=== PATIENT | female | born 1965 | race Caucasian/White ===

== ENCOUNTER → 2019-07-04 10:03 | Outpatient (CLI) | payer BC, SELFPAY ==
--- NOTE | ~2019-07-04 | MM_ITS ---
EXAMINATION: MM screening [facility] BI w alisa HISTORY: Screening mammogram TECHNIQUE: Craniocaudal and mediolateral oblique 3-D tomosynthesis images were obtained and synthetic 2-D images were generated. CAD analysis was submitted and interpreted. COMPARISON: Comparison to multiple prior studies sequentially, with oldest reviewed study dated 06/28. BREAST PARENCHYMAL COMPOSITION: There are scattered areas of fibroglandular density. FINDINGS: Stable left breast mass. There is a new cluster of punctate calcifications in the upper out er quadrant of the left breast. The right breast is stable without evidence for malignancy. IMPRESSION: 1. New cluster of left breast calcifications. 2. Magnification views are recommended. BI-RADS Category 0: Incomplete: Needs additional imaging evaluation. Reviewed, dictated and finalized at location A.
== END ==
PROVIDERS: Visit Provider Obstetrics & Gynecology
DX: Z12.31 Encounter for screening mammogram for malignant neoplasm of breast (principal); R92.8 Other abnormal and inconclusive findings on diagnostic imaging of breast
CPT/HCPCS: 77063; 77067

== ENCOUNTER 2020-02-25 02:19 | Outpatient (CLI) | payer BC, SELFPAY ==
[2020-02-25 19:47] LABS: SARS-CoV-2 RNA PCR Negative
== END 2020-02-25 02:20 | disposition home or self-care (01) ==
LOC: ANHCOVIDDT 02:20
PROVIDERS: PCP Internal Medicine; Visit Provider Surgery
DX: Z01.812 Encounter for preprocedural laboratory examination (principal); Z20.828 Contact with and (suspected) exposure to other viral communicable diseases
CPT/HCPCS: 87635; C9803; U0003

== ENCOUNTER 2020-02-26 07:50 | Outpatient (CLI) | payer BC, SELFPAY ==
--- NOTE | 2020-02-26 07:55 | ECG_ITS ---
Measurements Intervals [place] Rate: 86 P: 69 TN: 164 QRS: 40 QRSD: 85 T: 43 QT: 345 QTc: 413 Interpretive Statements SINUS RHYTHM MINIMAL Q WAVES- INFERIOR LEADS ANTEROSEPTAL INFARCT, AGE INDETERMINATE BASELINE ARTIFACT- I, III, AVR, AVL, AVF ABNORMAL ECG Electronically Signed On 02-26-2020 8:48:19 MULTIPLE CUT OFF SAW OPERATOR by Butch Freeman D.O.
[2020-02-26 10:00] LABS: Anion Gap 7 mmol/L (8-16); Blood Urea Nitrogen 12 mg/dL (7-17); Calcium 9.3 mg/dL (8.4-10.2); Carbon Dioxide 30 mmol/L (22-30); Chloride 103 mmol/L (98-107); Estimated Glomerular Filt Rate > 60; Glucose 87 mg/dL (65-105); Potassium 3.9 mmol/L (3.4-5.0); Sodium 140 mmol/L (137-145)
== END 2020-02-26 07:51 | disposition home or self-care (01) ==
LOC: ANHSURGERY 07:55
PROVIDERS: Anesthesiology; PCP Internal Medicine; Visit Provider Surgery
DX: Z01.818 Encounter for other preprocedural examination (principal); L73.2 Hidradenitis suppurativa; I10 Essential (primary) hypertension; I25.5 Ischemic cardiomyopathy; K64.4 Residual hemorrhoidal skin tags
CPT/HCPCS: 36415; 80048; 93005

== ENCOUNTER 2020-02-28 04:25 | Day surgery (SDC) | payer BC, SELFPAY ==
[2020-02-18 10:57] VITALS: BMI 25.4
--- NOTE | 2020-02-27 08:33 | P.PNAN_ITS ---
Anes - Initial Pre Proc Eval Procedure: Operation Date: 02/28/20 12:00 Proposed Procedures p Excision Bilateral Groin Hidradenitis - Tim Atkins DO s Rectal Exam Under Anesthesia, Excision Of External Hemorrhoid - Tim Atkins DO Date/Time: 02/27/20 08:33 Surgeon: Tim Atkins DO Pre Op Diagnosis: hidradenitis Patient Data Age: 54 Gender: F Height: 1.6 m Weight: 65 kg Allergies Allergy/AdvReac Type Severity Reaction Status Date / Time sulfamethoxazole Allergy Intermediate Hives Verified 02/28/20 10:10 [From Bactrim] trimethoprim [From Bactrim] Allergy Intermediate Hives Verified 02/28/20 10:10 codeine Allergy Mild Abdominal Verified 02/28/20 10:10 discomfort Home Medications Medication Instructions Recorded Confirmed Type cholecalciferol (vitamin D3) 50 2,000 unit PO DAILY 06/13/19 02/28/20 History mcg (2,000 unit) capsule multivitamin 1 tablet PO DAILY 06/13/19 02/28/20 History duloxetine 30 mg capsule,delayed 30 mg PO DAILY 06/17/19 02/28/20 History release mecobalamin (vitamin B12) 1,000 1,000 mcg PO DAILY 12/13/19 02/28/20 History mcg chewable tablet lisinopril 20 See Rx Instructions .ROUTE 02/17/20 02/28/20 Rx mg-hydrochlorothiazide 25 mg tablet .COMPLEX #90 tablet ibuprofen 800 mg PO DAILY 02/18/20 02/28/20 History Patient hx anesthesia problems: none Family hx anesthesia problems: none PMFSH Past Medical History Medical History Crohn disease Hypertension Surgical History Surgical History H/O neck surgery 2009 History of delivery 1990 History of colon resection 1990 Family History Family History Father Hypertension Family history of lung cancer Mother Patient's mother is in good health Social History Social History Years smoked: 30 Smoking status: Light tobacco smoker Tobacco type: cigarettes Second hand tobacco smoke exposure: No Smoking end date: 04/10/16 Alcohol intake: never Substance use: never Substance use type: does not use Living arrangements: with family 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 Gender identity (if verbalized by the patient): Female Spiritual care concerns: No Anes - Eval Final PreProcedure Day of Procedure 02/27/20 08:33 Patient weight: overweight Heart: regular rate and rhythm Lungs: clear to auscultation and normal air movement Airway: Mallampati scale class II Neurological: alert and oriented Last oral intake: >/= 8 hours ASA classification: III Emergent: no Anesthetic plan: proceed Anesthesia type and monitoring: general ETT and standard monitoring Informed Consent: The patient's anesthetic plan and its attendant risks and benefits were discussed with the patient/family/POA. Questions were solicited and answers provided to the satisfaction of the patient/family/POA.
[2020-02-28] VITALS (9 sets, daily range): BP systolic 108–134; BP diastolic 60–85; PULSE 83–98; RESP 14–16; TEMP 36.4–36.6; O2SAT 90–100
[2020-02-28] MEDS: LACTATED RINGERS 1,000 ML 30 ML IV CONT ×2 (10:34→13:32)
[2020-02-28] MEDS: ACETAMINOPHEN 500 MG TABLET 1000 MG PO (10:35)
[2020-02-28] MEDS: KETOROLAC 15 MG/ML VIAL (*BKC) IV PUSH (10:37)
--- NOTE | 2020-02-28 11:47 | PM.IMHP ---
H&P: HPI History of Present Illness Date/Time: 02/28/20 11:47 Chief complaint: hidradenitis Narrative: Olinda Villa is a 54 year old female who presents for treatment of hidradenitis and external hemorrhoid. She has dealt with bilateral groin hidradenitis for years and also has an external hemorrhoid that causes a lot of bleeding, irritation and drainage. Review of Systems Review of Systems: All systems reviewed & are unremarkable except as noted in HPI and below Constitutional: Constitutional: Denies chills, Denies fever(s), Denies headache(s) and Denies weight loss Eyes: Eyes: Denies change in vision ENT: Denies dizziness, Denies headache(s), Denies neck mass and Denies throat swelling Cardiovascular: Cardiovascular: Denies chest pain, Denies lightheadedness and Denies dyspnea Respiratory: Respiratory: Denies cough, Denies dyspnea and Denies wheezing Gastrointestinal: Gastrointestinal: Denies abdominal pain, Denies change in bowel habits, Denies nausea and Denies vomiting Genitourinary: Genitourinary: Denies hematuria and Denies dysuria Musculoskeletal: Musculoskeletal: Reports as per HPI Integumentary/Breasts: Skin/Breast: Reports as per HPI Neurologic: Denies dizziness and Denies headache(s) Allergic/Immunologic: Allergic/Immunologic: Denies throat swelling and Denies wheezing PMFSH Past Medical History Medical History Crohn disease Hypertension Surgical History Surgical History H/O neck surgery 2009 History of delivery 1990 History of colon resection 1990 Family History Family History Father Hypertension Family history of lung cancer Mother Patient's mother is in good health Social History Social History Years smoked: 30 Smoking status: Light tobacco smoker Tobacco type: cigarettes Second hand tobacco smoke exposure: No Smoking end date: 04/10/16 Alcohol intake: never Substance use: never Substance use type: does not use Living arrangements: with family 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 Gender identity (if verbalized by the patient): Female Spiritual care concerns: No Meds Home Medications and Allergies Home Medications Medication Instructions Recorded Confirmed Type cholecalciferol (vitamin D3) 50 2,000 unit PO DAILY 06/13/19 02/28/20 History mcg (2,000 unit) capsule multivitamin 1 tablet PO DAILY 06/13/19 02/28/20 History duloxetine 30 mg capsule,delayed 30 mg PO DAILY 06/17/19 02/28/20 History release mecobalamin (vitamin B12) 1,000 1,000 mcg PO DAILY 12/13/19 02/28/20 History mcg chewable tablet lisinopril 20 See Rx Instructions .ROUTE 02/17/20 02/28/20 Rx mg-hydrochlorothiazide 25 mg tablet .COMPLEX #90 tablet ibuprofen 800 mg PO DAILY 02/18/20 02/28/20 History Allergies Allergy/AdvReac Type Severity Reaction Status Date / Time sulfamethoxazole Allergy Intermediate Hives Verified 02/28/20 10:10 [From Bactrim] trimethoprim [From Bactrim] Allergy Intermediate Hives Verified 02/28/20 10:10 codeine Allergy Mild Abdominal Verified 02/28/20 10:10 discomfort Vital Signs Vital Signs - 24 hr 02/28/20 10:20 Temperature 36.6 C Pulse Rate 83 Respiratory Rate 16 Blood Pressure 121/83 Pulse Oximetry 98 Exam Const: General: no acute distress and alert Orientation/consciousness: patient oriented x3 HENMT: Head: normocephalic and atraumatic Ears: hearing grossly normal bilaterally General nose exam: Normal nares present Mouth: Yes Normal oral and palatal mucosa present Eyes: Periorbital: periorbital findings normal Sclera: sclerae normal EOM: EOMs intact bilaterally Neck: Neck: normal visual inspection, no lymphadenopathy and trachea midli
--- NOTE | 2020-02-28 11:50 | WPDHPUPDATE1 ---
History and Physical Update Update Date/Time: 02/28/20 11:50 History and Physical has been reviewed, including an updated exam of the patient. There are NO changes in the patient's condition. Risks, benefits, and alternatives have been discussed and questions answered. Patient agrees to proceed with procedure.
[2020-02-28] MEDS: ceFAZolin 2 GM/D5W 50 ML 2 GM/50 ML BAG IVPB (12:13)
[2020-02-28] MEDS: LIDO 1%/EPINEPHRINE 1:100,000 20 ML VIAL 10 ML INFILTRATE (12:43)
--- NOTE | 2020-02-28 13:33 | PM.PROC ---
Procedure Note - Detailed Date of procedure: 02/28/20 Pre-op diagnosis: hidradenitis, external hemorrhoid Post-op diagnosis: other (Extensive bilateral groin hidradenitis, left groin abscess, External hemorrhoid, Crohn's disease) Procedure performed: 1. Excision of complicated bilateral groin hidradenitis 2. Incision and drainage of left groin abscess 3. Rectal exam under anesthesia 4. Excision of right anterior external hemorrhoid Description of procedure: Procedure as well as risks, benefits, and alternatives were discussed with the patient. Written consent was obtained and placed in chart prior to procedure. Patient was brought back to surgical suite. She was placed supine on operating table. Time-out was done to confirm patient and procedure. She was then intubated by the anesthesia department. She was then repositioned into dorsal lithotomy position in candy-cane stirrups. Her groin and perirectal area were prepped and draped in sterile fashion using Betadine prep. The left groin was initially explored. A lacrimal probe was used to probe some of the sinus tracts from the hidradenitis in the inner left groin region. There were 2 separate areas that required excision along the left groins and both were marked out with a marking pen initially. There was still some chronic hidradenitis in more of the upper left groin and suprapubic region, but this did not appear to be significantly involved at this time an was deferred for a future procedure if needed. The patient also had an area of fluctuance in the more posterior left inner groin and there was significant erythema around this area. An incision was made over this area of fluctuance using a 15 blade scalpel and purulence fluid was drained. This appeared to track anteriorly towards the other area of chronic hidradenitis that was to be excised. An 8 cm elliptical incision was made around the more inner left groin hidradenitis. The hidradenitis skin and subcu tissue was excised sharply using a 15 blade scalpel. Electrocautery was then used for hemostasis. I ensured that all the chronic granulation tissue was also cauterized to help with adequate granulation and closure. The area was then irrigated with sterile saline. Hemostasis appeared adequate. The skin edges were then reapproximated using 3 0 nylon vertical mattress interrupted sutures as well as a few simple interrupted sutures between to adequately approximate the skin. The more outer area of hidradenitis was then also excised using a 4 cm elliptical incision. There was a bridge of about 2 cm of healthy appearing skin between the 2 excisions. Again hemostasis was achieved with electrocautery and the area was irrigated with sterile saline. The skin edges were then reapproximated using 3 0 nylon vertical mattress interrupted sutures. I then moved my attention over to the right groin region. The area of hidradenitis in the upper right groin near the suprapubic region was excised using a 4 cm elliptical incision. Electrocautery was used for hemostasis and the hidradenitis skin was excised completely and sent to the lab for pathology. The area was irrigated with sterile saline and the skin was then reapproximated using 3 0 nylon vertical mattress interrupted sutures. I then moved my attention down to the rectal region. Digital rectal exam was initially performed. A small Hill-Bar anoscope was initially inserted in the anal rectal canal was carefully inspected. I then inserted the medium Hill-Bar anoscope and also inspected the anal rectal canal. The right anterior external hemorrhoid was then excised using elliptical incision with a 15 blade scalpel. The hemorrhoid was completely excised sharply and was sent to the lab for pathology. Hemostasis was then achieved with electrocautery. The anoderm was then reapproximated using 3 0 chromic simple interrupted sutures. The area was irrigated inspected. The patient appeared to have some friabl
== END 2020-02-28 15:30 | disposition home or self-care (01) ==
PROVIDERS: PCP Internal Medicine; Visit Provider Surgery
PROC: (CPT 10060; principal; 2020-02-28 12:00)
PROC: (CPT 10060; 2020-02-28 12:00)
DX: L73.2 Hidradenitis suppurativa (principal); K62.89 Other specified diseases of anus and rectum; L02.214 Cutaneous abscess of groin; K50.90 Crohn's disease, unspecified, without complications; I10 Essential (primary) hypertension; Z87.891 Personal history of nicotine dependence
CPT/HCPCS: 10060; 11462; 46220; 88304; A9270; C9290; J0690; J1100; J1885; J2250; J2405; J2704; J3010; J7120

== ENCOUNTER → 2020-08-12 07:35 | Outpatient (CLI) | payer BC, SELFPAY ==
--- NOTE | ~2020-08-12 | MM_ITS ---
EXAMINATION: MM diagnostic [facility] BI w alisa HISTORY: Follow-up left breast calcifications TECHNIQUE: Additional 3-D tomosynthesis images of the breasts were performed and synthetic 2-D images were generated. CAD analysis was submitted and interpreted. COMPARISON: Comparison to multiple prior studies sequentially, with oldest reviewed study dated 05/10. BREAST PARENCHYMAL COMPOSITION: Breast composed of scattered areas of fibroglandular density. FINDINGS: The right breast is stable without evidence for malignancy. Stable left breast mass, upper outer quadrant. Punctate clustered calcifications in the mid outer aspect of the left breast are stab le, likely benign. No new masses, calcifications or architectural distortion. IMPRESSION: 1. Stable bilateral mammogram. Clustered left breast calcifications are likely benign and unchanged. 2. Recommend 6 month follow-up diagnostic left mammogram. BI-RADS category 3, probably benign findings. Reviewed, dictated and finalized at location A.
== END ==
PROVIDERS: Visit Provider Obstetrics & Gynecology
DX: R92.0 Mammographic microcalcification found on diagnostic imaging of breast (principal)
CPT/HCPCS: 77062; 77066; G0279

== ENCOUNTER → 2021-06-01 07:53 | Outpatient (CLI) | payer BC, SELFPAY ==
--- NOTE | ~2021-06-01 | MM_ITS ---
EXAMINATION: MM diagnostic [facility] w alisa HISTORY: Follow-up left breast calcifications TECHNIQUE: Additional 3-D tomosynthesis images of the left breast were performed and synthetic 2-D im ages were generated. CAD analysis was submitted and interpreted. COMPARISON: Comparison to multiple prior studies sequentially, with oldest reviewed study dated 05/10. BREAST PARENCHYMAL COMPOSITION: Breast composed of scattered areas of fibroglandular density FINDINGS: There are stable benign-appearing left breast calcifications. Stable benign left breast mas s unchanged. No new masses, calcifications or architectural distortion to suggest malignancy. IMPRESSION: 1. No mammographic evidence for malignancy in the left breast. 2. Routine yearly screening mammogram and regular clinical breast examination are recommended. BI-RADS Category 2: Benign finding(s). Reviewed, dictated and finalized at location B. 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 No mammographic evidence for malignancy in the left breast. 2. Routine yearly screening mammogram and regular clinical breast examination a re recommended. BI-RADS Category 2: Benign finding(s).
== END ==
PROVIDERS: Visit Provider Obstetrics & Gynecology Gynecology
DX: N64.59 Other signs and symptoms in breast (principal)
CPT/HCPCS: 77061; 77065; G0279

== ENCOUNTER 2021-07-30 00:37 | Day surgery (SDC) | payer BC, SELFPAY ==
[2021-07-16 11:08] VITALS: BMI 29.2
[2021-07-30 06:25] VITALS: BP 135/89; PULSE 95; RESP 17; TEMP 36.7; O2SAT 98
[2021-07-30] MEDS: LACTATED RINGERS 1,000 ML 150 ML IV CONT (06:39)
--- NOTE | 2021-07-30 07:19 | PM.HPGS ---
History of Present Illness History of Present Illness Consent: Risks, benefits, and alternatives have been discussed and questions answered. Patient agrees to proceed with procedure. Chief complaint: rectal mass Narrative: Olinda Villa is a 55 year old female with history of Crohns (I do not have records) that required surgery in 1990 but she has not needed any medication for 30 years and denies any new symptom. She has been getting colonoscopies every 2 years. Review of Systems Constitutional: Constitutional: Denies headache(s) and Denies weakness Eyes: Eyes: Denies blurry vision ENT: Reports Normal hearing present, Denies headache(s) and Denies neck pain Cardiovascular: Cardiovascular: Denies chest pain and Denies dyspnea Respiratory: Respiratory: Denies dyspnea Gastrointestinal: Gastrointestinal: Reports no additional gastrointestinal complaints Genitourinary: Genitourinary: Denies dysuria Musculoskeletal: Musculoskeletal: Denies neck pain Integumentary/Breasts: Skin/Breast: Denies dry skin Neurologic: Reports Normal hearing present, Denies headache(s) and Denies weakness Psychiatric: Psychiatric: Denies anxiety Endocrine: Endocrine: Denies change in body appearance Hematologic/Lymphatic: Hematologic/Lymphatic: Denies easy bleeding Allergic/Immunologic: Allergic/Immunologic: Denies urticaria PMFSH Past Medical History Medical History (Updated 07/13/21 @ 09:51 by Cristian Canseco PA-C) Crohn disease Hidradenitis Hypertension Surgical History Surgical History (Updated 07/30/21 @ 07:20 by Miles Fierro MD) H/O neck surgery 2009 History of delivery 1990 History of colon resection 1990 History of hemorrhoidectomy Excision of complicated bilateral groin hidradenitis, Incision and drainage of left groin abscess, Excision of right anterior external hemorrhoid Family History Family History Father Hypertension Family history of lung cancer Mother Patient's mother is in good health Social History Social History Smoking packs per day: 1.5 Smoking cigarettes per day: 30.0 Years smoked: 30 Smoking pack-years: 45.00 Smoking status: Former smoker Tobacco type: cigarettes Second hand tobacco smoke exposure: No Smoking end date: 04/10/16 Alcohol intake: current Substance use: never Substance use type: does not use Living arrangements: alone 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 Gender identity (if verbalized by the patient): Female Spiritual care concerns: No Meds Home Medications and Allergies Home Medications Medication Instructions Recorded Confirmed Type cholecalciferol (vitamin D3) 50 2,000 unit PO DAILY 06/13/19 07/16/21 History mcg (2,000 unit) capsule multivitamin 1 tablet PO DAILY 06/13/19 07/16/21 History mecobalamin (vitamin B12) 1,000 1,000 mcg PO DAILY 12/13/19 07/16/21 History mcg chewable tablet lisinopril 10 mg tablet 20 mg PO DAILY #90 tablet 07/09/21 07/16/21 Rx Allergies Allergy/AdvReac Type Severity Reaction Status Date / Time sulfamethoxazole Allergy Intermediate Hives Verified 07/30/21 06:24 [From Bactrim] trimethoprim [From Bactrim] Allergy Intermediate Hives Verified 07/30/21 06:24 codeine Allergy Mild Abdominal Verified 07/30/21 06:24 discomfort Vital Signs Vital Signs - 24 hr 07/30/21 06:25 Temperature 98.1 F Pulse Rate 95 Respiratory Rate 17 Blood Pressure 135/89 Pulse Oximetry 98 Exam Const: General: comfortable and no acute distress HENMT: General nose exam: Normal nares present Eyes: General: appearance normal, both eyes and all related structures Neck: Neck: no JVD Resp: Auscultation: clear to auscultation bilaterally Cardio: Rate: regular rate Rhythm: regular rhythm GI: Inspection: non-distended GI
--- NOTE | 2021-07-30 07:23 | WPDANESEPPF ---
Anes - Initial Pre Proc Eval Procedure: Operation Date: 07/30/21 07:30 Proposed Procedures p Colonoscopy - Miles Fierro MD Date/Time: 07/30/21 07:23 Surgeon: Miles Fierro MD Pre Op Diagnosis: rectal mass Patient Data Age: 55 Gender: F Height: 1.6 m Weight: 74.8 kg Last Vital Signs Temp 98.1 F 07/30/21 06:25 Pulse 95 07/30/21 06:25 Resp 17 07/30/21 06:25 BP 135/89 07/30/21 06:25 Pulse Ox 98 07/30/21 06:25 Allergies Allergy/AdvReac Type Severity Reaction Status Date / Time sulfamethoxazole Allergy Intermediate Hives Verified 07/30/21 06:24 [From Bactrim] trimethoprim [From Bactrim] Allergy Intermediate Hives Verified 07/30/21 06:24 codeine Allergy Mild Abdominal Verified 07/30/21 06:24 discomfort Home Medications Medication Instructions Recorded Confirmed Type cholecalciferol (vitamin D3) 50 2,000 unit PO DAILY 06/13/19 07/16/21 History mcg (2,000 unit) capsule multivitamin 1 tablet PO DAILY 06/13/19 07/16/21 History mecobalamin (vitamin B12) 1,000 1,000 mcg PO DAILY 12/13/19 07/16/21 History mcg chewable tablet lisinopril 10 mg tablet 20 mg PO DAILY #90 tablet 07/09/21 07/16/21 Rx Patient hx anesthesia problems: none Family hx anesthesia problems: none Results Review: All pre-operative results and documents have been reviewed as part of the pre-operative evaluation. [facility] Past Medical History Medical History (Updated 07/13/21 @ 09:51 by Cristian Canseco PA-C) Crohn disease Hidradenitis Hypertension Surgical History Surgical History (Updated 07/30/21 @ 07:20 by Miles Fierro MD) H/O neck surgery 2009 History of delivery 1990 History of colon resection 1990 History of hemorrhoidectomy Excision of complicated bilateral groin hidradenitis, Incision and drainage of left groin abscess, Excision of right anterior external hemorrhoid Family History Family History Father Hypertension Family history of lung cancer Mother Patient's mother is in good health Social History Social History Smoking packs per day: 1.5 Smoking cigarettes per day: 30.0 Years smoked: 30 Smoking pack-years: 45.00 Smoking status: Former smoker Tobacco type: cigarettes Second hand tobacco smoke exposure: No Smoking end date: 04/10/16 Alcohol intake: current Substance use: never Substance use type: does not use Living arrangements: alone 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 Informed Consent: The patient's anesthetic plan and its attendant risks and benefits were discussed with the patient/family/POA. Questions were solicited and answers provided to the satisfaction of the patient/family/POA.
[2021-07-30 08:05] VITALS: BP 126/85; PULSE 100; RESP 20; O2SAT 98
[2021-07-30 08:15] VITALS: BP 127/88; PULSE 91; RESP 20; O2SAT 100
[2021-07-30 08:25] VITALS: BP 141/95; PULSE 84; RESP 20; O2SAT 100
== END 2021-07-30 08:38 | disposition home or self-care (01) ==
PROVIDERS: PCP Physician Assistant; Visit Provider Internal Medicine Gastroenterology
PROC: 0DJD8ZZ Inspection of Lower Intestinal Tract, Via Natural or Artificial Opening Endoscopic (ICD-10-PCS; CPT 45378; principal; 2021-07-30 07:30)
DX: K63.89 Other specified diseases of intestine (principal); D12.8 Benign neoplasm of rectum; K64.8 Other hemorrhoids; K50.90 Crohn's disease, unspecified, without complications; Z98.0 Intestinal bypass and anastomosis status; Z90.49 Acquired absence of other specified parts of digestive tract; I10 Essential (primary) hypertension; Z87.891 Personal history of nicotine dependence
CPT/HCPCS: 45380; 45385; 88305; J2704; J7120

== ENCOUNTER 2022-05-29 18:50 | Emergency (ER) | payer BC, SELFPAY ==
[2022-05-29 19:12] VITALS: BP 170/94; PULSE 106; RESP 16; TEMP 37.1; O2SAT 98
[2022-05-29] MEDS: ACETAMINOPHEN 500 MG TABLET 1000 MG PO (20:29)
[2022-05-29] MEDS: IBUPROFEN 600 MG TABLET PO (20:29)
--- NOTE | 2022-05-29 21:59 | PC.NURSE ---
patient left from treatment area stating that she is in pain and the doctor was taking too long to see her
--- NOTE | 2022-05-29 22:01 | PC.NURSE ---
Patient left ED without being seen by a provider. Patient seen by intake staff leaving with her belongings and spouse. Patient upset about wait time. patient informed that the providers are aware and they will get to her as soon as they can. Patient left ED with a steady gait.
== END 2022-05-29 22:05 | disposition left against medical advice (07) ==
PROVIDERS: Emergency Provider Emergency Medicine; PCP Physician Assistant
DX: L72.9 Follicular cyst of the skin and subcutaneous tissue, unspecified (principal)
CPT/HCPCS: 99199; A9270

== ENCOUNTER → 2022-08-19 14:38 | Outpatient (CLI) | payer BC, SELFPAY ==
--- NOTE | ~2022-08-19 | MM_ITS ---
EXAMINATION: MM screening [facility] BI w alisa HISTORY: Screening TECHNIQUE: Craniocaudal and mediolateral oblique 3-D tomosynthesis images were obtained and synthetic 2-D images were generated. CAD analysis was submitted and interpreted. COMPARISON: Comparison to multiple prior studies sequentially, with oldest reviewed study dated 05/2014. BREAST PARENCHYMAL COMPOSITION: There are scattered areas of fibroglandular density. FINDINGS: There is new area of architectural distortion in the upper outer quadrant of the right epi st. There is a stable mass in the upper outer quadrant of the left breast. There are no new masses, c alcifications or architectural distortion in the left breast to suggest malignancy. IMPRESSION: 1. New area of architectural distortion upper outer quadrant of the right breast. 2. Additional mammographic views and possible breast ultrasound are recommended. BI-RADS Category 0: Incomplete: Needs additional imaging evaluation. Reviewed, dictated and finalized at location B. IMPRESSION: 1. New area of architectural distortion upper outer quadrant of the right breas t. 2. Additional mammographic views and possible breast ultrasound are recommended . BI-RADS Category 0: Incomplete: Needs additional imaging evaluation.
== END ==
PROVIDERS: PCP Obstetrics & Gynecology Gynecology; Visit Provider Obstetrics & Gynecology Gynecology
DX: Z12.31 Encounter for screening mammogram for malignant neoplasm of breast (principal); R92.8 Other abnormal and inconclusive findings on diagnostic imaging of breast
CPT/HCPCS: 77063; 77067

== ENCOUNTER → 2022-09-06 09:57 | Outpatient (CLI) | payer BC, SELFPAY ==
--- NOTE | ~2022-09-06 | US_ITS ---
Pelvic ultrasound. Clinical History: Postmenopausal bleeding Technique: Realtime transabdominal and transvaginal scanning of the pelvis was performed. Color flow Doppler and Doppler spectral analysis were performed. Findings: The uterus is anteverted. The endometrial stripe has a thickness of 2 mm. There is a small amount of fluid within the endometrial cavity versus small cystic mass. The right ovary measures 1.9 x 1.8 x 2.2 cm. No significant right ovarian or adnexal mass is seen. The left ovary measures 1.8 x 1.7 x 2.4 cm. No significant left ovarian or adnexal mass is seen. There is no evidence of free fluid in the cul de sac. Impression: No abnormal endometrial thickening. Small amount of fluid within the endometrial cavity versus less likely cystic mass. Reviewed, dictated and finalized at [facility] M. Impression: No abnormal endometrial thickening. Small amount of fluid within the endometrial cavity versus less likely cystic m ass.
--- NOTE | ~2022-09-06 | DEXA_ITS ---
Bone Density Report Name: HERNANDEZ MCGARRY Age: 56 Sex: Female Ethnicity: White Date of : 1965 Indication: postmenopausal; screening for osteoporosis; inflammatory bowel disease; history of glucocorticoids; Referring Provider: BLAIR MOLINA Study: Bone densitometry was performed. Exam Date: September 06, 2022 Accession number: [id number] Bone Density: Region BMD T-score Z-score Classification AP Spine (L1-L4) 1.172 1.1 2.3 Normal Femoral Neck (Left) 0.813 -0.3 0.8 Normal Total Hip (Left) 0.915 -0.2 0.5 Normal Femoral Neck (Right) 0.921 0.6 1.7 Normal Total Hip (Right) 0.951 0.1 0.8 Normal Total Hip Mean 0.933 -0.1 0.7 Normal World Health Organization criteria for BMD impression classify patients as: Normal (T-score at or above -1.0), Osteopenia (T-score between -1.0 and -2.5), or Osteoporosis (T-score at or below -2.5). 10-year Fracture Risk: FRAX not reported because: All T-scores for Spine Total, Hip Total, Femoral Neck at or above -1.0 Clinical Information Provided by Patient: Has taken Glucocorticoids Has used the following medications: Vitamin D, MULTI VITAMIN Has the following medical conditions: Inflammatory bowel diseases Patient maximum height was 62.5 Menopause Age: 39 No regular weight bearing exercise Drinks caffeinated beverages Onset of menses at age 11 Number of children 1 Impression: The patient has normal bone mass. The patient has risk factors, including: history of glucocorticoid therapy. Discussion: BONE DENSITY IS ABOVE THE MINIMUM DESIRABLE LEVEL AT ALL SKELETAL SITES TESTED. This patient?s bone mineral density is above the minimum desirable level (T-score -1.0 or better) at all sites measured. The patient should follow a healthful lifestyle (good nutrition with adequate calcium and vitamin D, and appropriate weight-bearing exercise). Follow-Up: Consider repeating this study in 5 years or sooner if there is some new clinical indication. Reported by: JOSE on 09/06/2022 10:11:00 AM. Reviewed, dictated and finalized at location A. [facility]
== END ==
PROVIDERS: PCP Physician Assistant; Visit Provider Obstetrics & Gynecology Gynecology
DX: Z78.0 Asymptomatic menopausal state (principal); N95.0 Postmenopausal bleeding
CPT/HCPCS: 76830; 77080

== ENCOUNTER → 2022-09-16 07:37 | Outpatient (CLI) | payer BC, SELFPAY ==
--- NOTE | ~2022-09-16 | MMUS_ITS ---
EXAMINATION: MM diagnostic hyacinth RT w alisa, US breast RT limited HISTORY: Follow-up architectural distortion TECHNIQUE: Additional 3-D tomosynthesis images of the right breast were performed and synthetic 2-D i mages were generated. CAD analysis was submitted and interpreted. High resolution Limited right breas t ultrasound was performed. COMPARISON: Comparison to multiple prior studies sequentially, with oldest reviewed study dated 12/2015. BREAST PARENCHYMAL COMPOSITION: Breast composed of scattered areas of fibroglandular density FINDINGS: MAMMOGRAPHIC FINDINGS: There is a spiculated mass in the upper outer quadrant of the right breast, middle third with partial ly obscured borders by overlying fibroglandular tissue. ULTRASOUND: Limited right breast ultrasound: There is an irregular shaped hypoechoic mass at 10-11 o'clock, 4 cm from the nipple measuring 1.3 x 1.1 x 1 cm. There is dense posterior shadowing. Marginal vascularity. IMPRESSION: 1. Spiculated right breast mass measuring 1.3 cm at the 10-11 o'clock, 4 cm from the nipple. 2. Ultrasound-guided right breast biopsy recommended. BI-RADS category 5, highly suggestive of malignancy. Reviewed, dictated and finalized at location A. IMPRESSION: 1. Spiculated right breast mass measuring 1.3 cm at the 10-11 o'clock, 4 cm fro m the nipple. 2. Ultrasound-guided right breast biopsy recommended. BI-RADS category 5, highly suggestive of malignancy.
== END ==
PROVIDERS: PCP Physician Assistant; Visit Provider Obstetrics & Gynecology Gynecology
DX: R92.8 Other abnormal and inconclusive findings on diagnostic imaging of breast (principal)
CPT/HCPCS: 76642; 77061; 77065; G0279